=== PATIENT | female | born 1945 | race Caucasian/White ===

== ENCOUNTER → 2016-07-08 | Outpatient (CLI) | payer MEDICARE, OTHER ==
[~2016-07-08] MED LIST: BETIMOL 0.5% OPH5 ML OP; CALCIUM 1200 W/1 SGL PO; LORTAB 5/500 501 TAB PO; PREMPRO 0.625/21 TAB PO; PRILOSEC 20MG20 MG PO; XALATAN EYE DROPS OP
== END ==
LOC: MC.RAD 11:26
DX: Z12.31 Encounter for screening mammogram for malignant neoplasm of breast (principal)

== ENCOUNTER → 2019-09-15 | Outpatient (CLI) | payer MEDICARE, OTHER | LOC: MC.RAD 10:17 | DX: Z12.31 Encounter for screening mammogram for malignant neoplasm of breast (principal) ==

== ENCOUNTER 2023-11-23 08:43 | Emergency (ER) | payer MEDICARE, OTHER ==
[~2023-11-23] VITALS: Ht 154.9 cm; Wt 74.8 kg
[2023-11-23 08:47] VITALS: TEMP 98.1
[2023-11-23 10:54] LABS: BASO % 0.4 % (0.0-2.0); EOS # 0.1 K/mm3 (0.0-0.7); EOS % 0.7 % (0.0-4.0); GRAN # 6.2 K/mm3 (1.4-6.5); GRAN % 74.2 % (42.2-75.2); HEMOGLOBIN 10.1 g/dl (12.5-16.0); LYMPH # 1.2 K/mm3 (1.2-3.4); LYMPH % 14.9 % (20.0-51.0); MEAN CELL VOLUME 86 fl (80.0-100.0); MEAN CORPUSCULAR HEMOGLOBIN 27 pg (27-31); MEAN CORPUSCULAR HGB CONC 31 g/dl (33.0-37.0); MEAN PLATELET VOLUME 11.7 fl (7.4-10.4); MONO # 0.8 K/mm3 (0.1-0.6); MONO % 9.6 % (1.7-9.3); PLATELET COUNT 154 K/mm3 (130-400); RED BLOOD COUNT 3.77 M/mm3 (4.10-5.30); REDCELL DISTRIBUTION WIDTH-CV 14.1 % (11.5-14.5)
[2023-11-23 11:14] LABS: ALBUMIN 3.6 g/dL (3.4-4.8); BILIRUBIN,TOTAL 0.4 mg/dL (0.2-1.2); CREATININE, serum 0.75 mg/dL (0.57-1.11); POTASSIUM 4.1 mEq/L (3.5-4.5); TOTAL PROTEIN 6.4 g/dl (6.2-8.1)
[2023-11-23 11:23] LABS: HEMATOCRIT 32.3 % (37.0-47.0)
[2023-11-23 12:45] VITALS: BP 119/64; PULSE 60
== END 2023-11-23 12:45 | disposition home or self-care (01) ==
LOC: COL.ER 08:43
PROVIDERS: Personal Emergency Response Attendant
DX: F03.90 Unspecified dementia, unspecified severity, without behavioral disturbance, psychotic disturbance, mood disturbance, and anxiety (principal); D64.9 Anemia, unspecified; W06.XXXA Fall from bed, initial encounter